=== PATIENT | male | born 2000 | race Two or more races ===

== ENCOUNTER 2020-10-05 18:55 | Emergency (ER) | payer MEDICAID, OTHER ==
[~2020-10-05] VITALS: Ht 182.9 cm; Wt 97.5 kg
[2020-10-05] MEDS ORDERED: KETOROLAC TROMETH 60MG/2ML VIAL IM ONE (20:45)
[2020-10-05 21:50] VITALS: BP 125/78
== END 2020-10-05 22:25 | disposition home or self-care (01) ==
LOC: ER 18:55
DX: S62.337A Displaced fracture of neck of fifth metacarpal bone, left hand, initial encounter for closed fracture (principal); X58.XXXA Exposure to other specified factors, initial encounter; Y93.89 Activity, other specified; Y92.89 Other specified places as the place of occurrence of the external cause; Y99.8 Other external cause status
CPT/HCPCS: 29125; 73130; 96372; 99283; J1885